=== PATIENT | male | born 1965 ===

== ENCOUNTER → 2018-09-27 | Outpatient (CLI) | payer OTHER | END | disposition home or self-care (01) | LOC: RAD 11:10 | DX: M25.511 Pain in right shoulder (principal) ==

== ENCOUNTER 2018-10-01 12:33 | Outpatient (CLI) | payer OTHER | END 2018-10-01 13:02 | disposition home or self-care (01) | LOC: RAD 12:33 | DX: R07.89 Other chest pain (principal) ==

== ENCOUNTER → 2020-05-04 | Outpatient (CLI) | payer OTHER | END | disposition home or self-care (01) | LOC: RAD 10:53 | DX: M19.031 Primary osteoarthritis, right wrist (principal) ==